=== PATIENT | female | born 1960 | race Caucasian/White ===

== ENCOUNTER 2020-11-08 12:52 | Inpatient (IN) | payer MEDICARE ==
[~2020-11-08] VITALS: Ht 160 cm; Wt 72.7 kg
[2020-11-08 13:49] LABS: BASOPHILS 0.6 % (0-2); EOSINOPHILS 4.2 % (0-7); HEMOGLOBIN 12.5 g/dL (12-16); IMMATURE GRANULOCYTES 0.4 % (0-5); LYMPHOCYTE ABS# 2.85 10x3/uL (1.18-3.74); LYMPHOCYTES 25.5 % (15-50); MCH 27.2 pg (26.0-34.0); MCHC 32.1 g/dL (31.0-37.0); MONOCYTES 6.7 % (2-11); NEUTROPHIL ABS# 6.99 10x3/uL (1.56-6.13); NEUTROPHILS 62.6 % (40-80); PLATELET COUNT 396 10x3/uL (130-400); RBC 4.59 10x6/uL (4.00-5.40); RDW 14.7 % (11.5-14.5); WBC 11.2 10x3/uL (4.8-10.8)
[2020-11-08 14:02] LABS: ALBUMIN 3.7 g/dL (3.4-5.0); BILIRUBIN - TOTAL 0.36 mg/dL (0.2-1.3); CALCIUM 8.8 mg/dL (8.5-10.1); CARBON DIOXIDE 29.2 mmol/L (21.0-32.0); CREATININE - SERUM 0.9 mg/dL (0.6-1.3); MAGNESIUM - SERUM 2.5 mg/dL (1.8-2.4); PHOSPHOROUS 4.2 mg/dL (2.5-4.9); POTASSIUM - SERUM 4.2 mmol/L (3.5-5.1); PROTEIN - SERUM 7.6 g/dL (6.4-8.2)
[2020-11-08] MEDS ORDERED: ZOVIRAX200 MG PO (14:55)
[2020-11-08] MEDS ORDERED: BENTYL 20 MG TA20 MG PO (14:56)
[2020-11-08] MEDS ORDERED: FLUCONAZOLE150 MG PO (14:56)
[2020-11-08] MEDS ORDERED: HYDROCHLOROTHIA25 MG PO (14:57)
[2020-11-08] MEDS ORDERED: SYNTHROID75 MCG PO (14:57)
[2020-11-08] MEDS ORDERED: BUPROPION XL300 MG PO (14:58)
[2020-11-08] MEDS ORDERED: PROVIGIL200 MG PO (14:58)
[2020-11-08] MEDS ORDERED: K-TAB10 MEQ PO (14:59)
[2020-11-08] MEDS ORDERED: PROTONIX40 MG PO (15:00)
[2020-11-08] MEDS ORDERED: PERCOCET 10-321 EAC1 PO (15:01)
[2020-11-08] MEDS ORDERED: MORPHINE SULFAT30 M4 PO (15:02)
[2020-11-08] MEDS ORDERED: ADVAIR 250-501 EAC1 INH (15:02)
[2020-11-08] MEDS ORDERED: ACETAMINOPHEN325 MG PO (15:03)
[2020-11-08] MEDS ORDERED: MIRALAX17 GM PO (15:04)
[2020-11-08] MEDS ORDERED: ADVIL200 MG PO (15:04)
[2020-11-08] MEDS ORDERED: FLUTICASONE PRO16 GM NASAL (15:05)
[2020-11-08] MEDS ORDERED: MONISTAT-7 VAG45 G1 VG (15:05)
[2020-11-08 18:13] VITALS: BP 152/76; Ht 160 cm; Wt 72.7 kg
--- NOTE | 2020-11-08 18:26 | NUR ---
ASSESSMENT PER FLOW SHEET. PATIENT IS WITHOUT DISTRESS.ISOLATION MAINTAINED. GUARD AT BEDSIDE. CALL LIGHT USEE INSRUCTED.
[2020-11-09 06:35] LABS: BASOPHILS 0.9 % (0-2); EOSINOPHILS 5.4 % (0-7); HEMATOCRIT 33.5 % (36.0-48.0); HEMOGLOBIN 10.8 g/dL (12-16); IMMATURE GRANULOCYTES 0.3 % (0-5); LYMPHOCYTE ABS# 2.69 10x3/uL (1.18-3.74); LYMPHOCYTES 34.3 % (15-50); MCH 27.3 pg (26.0-34.0); MCHC 32.2 g/dL (31.0-37.0); MCV 84.6 fL (80.0-100.0); MEAN PLATELET VOLUME 10.8 fL (7.4-10.4); MONOCYTES 6.6 % (2-11); NEUTROPHIL ABS# 4.13 10x3/uL (1.56-6.13); NEUTROPHILS 52.5 % (40-80); PLATELET COUNT 343 10x3/uL (130-400); RBC 3.96 10x6/uL (4.00-5.40); RDW 14.8 % (11.5-14.5)
[2020-11-09 06:46] LABS: WBC 7.9 10x3/uL (4.8-10.8)
[2020-11-09 07:07] LABS: ALBUMIN 2.9 g/dL (3.4-5.0); ALKALINE PHOSPHATASE 92 U/L (30-120); ALT (SGPT) 23 U/L (10-68); BILIRUBIN - TOTAL 0.18 mg/dL (0.2-1.3); CALC OSMOLALITY 286 mosm/kg (275-300); CALCIUM 7.9 mg/dL (8.5-10.1); CARBON DIOXIDE 28.2 mmol/L (21.0-32.0); CHLORIDE - SERUM 107 mmol/L (98-107); CREATININE - SERUM 0.7 mg/dL (0.6-1.3); GLUCOSE 87 mg/dL (74-106); POTASSIUM - SERUM 3.9 mmol/L (3.5-5.1); PROTEIN - SERUM 6.1 g/dL (6.4-8.2); SODIUM 143 mmol/L (136-145); UREA NITROGEN 20 mg/dL (7-18); eGFR NON AFRICAN AMERICAN 90 mL/min (90-120)
[2020-11-09 08:17] VITALS: BP 146/73
--- NOTE | 2020-11-09 10:25 | NUR ---
CALL FROM JANET IN IR. PATIENT DOES NOT MET GUIDE LINES FOR PICC LINE. I HAVE SPOKEN WITH DR THAKKAR. DR THAKKAR WANTS MMID LINE PLACED FOR [facility]HOME ABX THERAPY. I HAVE SPOKEN WITH IRINA SHAHFORENSIC ARTIST WHOM REFERRED ME TO CASE MANAGEMENT TO ASSIST.
--- NOTE | 2020-11-09 10:27 | NUR ---
URINE IN AND OUT CATH TO LAB
--- NOTE | 2020-11-09 10:44 | MORECARE ---
CASE MANAGEMENT DISCHARGE SUMMARY PATIENT: ARIANNE SILVERIO UNIT: [id number] ADM DATE: 11/08/20 AGE: 60 : 58 SEX: F ROOM/BED: D.2205 AUTHOR: KARI,DOC PHYSICIAN: REFERRING PHYSICIAN: DIANE JACKSON MD DATE OF SERVICE: 11/09/20 Case Management Discharge Planning Summary COMMENTS ENTERED DATE: 11/09/20 10:40 CT COMMENT TYPE: Discharge Planning REVIEWER: Manisha Orlando PER DR THAKKAR HE WOULD LIKE THE PATIENT TO DC HOME WITH 7 DAYS OF IV ABX I HAVE SENT THE ORDER TO [employer] TO SEE GET A FREGOSO. I WILL NEED A LINE FOR THE PATIENT. CM ATTEMPTING TO MAKE THIS HAPPEN DCP REVIEW SUMMARY ANTICIPATED D/C DATE: EXPECTED LOS : CASE STATUS: DCP Initiated INITIAL REVIEW: 11/08/2020 INITIAL REVIEWER: Manisha Orlando FINAL DISCHARGE DISPOSITION: : FINAL REVIEWER: FINAL REVIEW DATE: DCP Focus Questions & Answers QUESTION: ANSWER : PATIENT: ARIANNE SILVERIO ENCOUNTER: [id number] MEDICAL RECORD#: [id number] ADMISSION DATE: 11/08/2020 DISCHARGE DATE: ATTENDING MD: DIANE SOMMERS : AGE: 60 MARITAL STATUS: M DC PLAN ID: [id number] FACILITY: [facility] PRINTED ON: 11/09/20 10:44 CT All edits/amendments must be made on the electronic document DICTATION DATE: 11/09/20 104 INBOUND SALES REPRESENTATIVE: DM 11/09/20 1044 RPT#: [id number] DC DATE: STATUS: ADM IN [facility] [address] [place] [address] END OF REPORT
[2020-11-09 11:16] LABS: BILIRUBIN NEGATIVE (NEGATIVE); KETONE NEGATIVE (NEGATIVE); NITRITE NEGATIVE (NEGATIVE); UROBILINOGEN NORMAL mg/dL (< 2)
[2020-11-09 12:48] VITALS: BP 150/71
--- NOTE | 2020-11-09 16:30 | MORECARE ---
CASE MANAGEMENT DISCHARGE SUMMARY PATIENT: ARIANNE SILVERIO UNIT: [id number] ADM DATE: 11/08/20 AGE: 60 : 58 SEX: F ROOM/BED: D.2205 AUTHOR: KARI,DOC PHYSICIAN: REFERRING PHYSICIAN: DIANE JACKSON MD DATE OF SERVICE: 11/09/20 Case Management Discharge Planning Summary COMMENTS ENTERED DATE: 11/09/20 16:22 CT COMMENT TYPE: Discharge Planning REVIEWER: Manisha Orlando CM HAS SENT A REFERRAL TO [facility] FOR PRICES [place] ANABELLA FLOW $ 337.37 MED BALLS 554.37 [facility] MINI BAGS $216.04 AND 15.00 PER DAY FOR SUPPLIES I HAVE CALLED [facility] , AND THEY ARE NOT ABLE TO ACCEPT THE PATIENT RIGHT NOW DUE TO STAFFING CARE [facility] DOES NOT TAKE [facility] IS OUT OF NETWORK SUPERIOR SENIOR LIVING- CAN NOT TAKE I CALLED [facility] ( SPOKE WITH KHAI) THEY DO TAKE SOME UH AND WILL HAVE TO RUN HER INSURANCE TO SEE IF SHE IS IN NETWORK WITH THEM. I HAVE FAXED THE CLINICALS TO HER SHE WILL NEED A MIDLINE & I HAVE MADE THE HOUSE SUP, IRINA AWARE OF THIS. I WILL WAIT TO HEAR BACK FROM [place] TO MAKE SURE SHE IS COVERED. CM WILL CONTINUE TO FOLLOW AND ASSIST ENTERED DATE: 11/09/20 10:40 CT COMMENT TYPE: Discharge Planning REVIEWER: Manisha Orlando PER DR THAKKAR HE WOULD LIKE THE PATIENT TO DC HOME WITH 7 DAYS OF IV ABX I HAVE SENT THE ORDER TO [employer] TO SEE GET A FREGOSO. I WILL NEED A LINE FOR THE PATIENT. CM ATTEMPTING TO MAKE THIS HAPPEN DCP REVIEW SUMMARY ANTICIPATED D/C DATE: EXPECTED LOS : CASE STATUS: DCP Initiated INITIAL REVIEW: 11/08/2020 INITIAL REVIEWER: Manisha Orlando FINAL DISCHARGE DISPOSITION: : FINAL REVIEWER: FINAL REVIEW DATE: DCP Focus Questions & Answers QUESTION: ANSWER : PATIENT: ARIANNE SILVERIO ENCOUNTER: [id number] MEDICAL RECORD#: [id number] ADMISSION DATE: 11/08/2020 DISCHARGE DATE: ATTENDING MD: DIANE SOMMERS : AGE: 60 MARITAL STATUS: M DC PLAN ID: [id number] FACILITY: [facility] PRINTED ON: 11/09/20 16:30 CT All edits/amendments must be made on the electronic document DICTATION DATE: 11/09/201629 BEHAVIORAL SCHOOL COUNSELORS: OMAYRA 11/09/201629 RPT#: [id number] DC DATE: STATUS: ADM IN [facility] [address] [place] [address] END OF REPORT
[2020-11-09 17:22] VITALS: BP 157/79
[2020-11-09 20:00] VITALS: BP 129/71
[2020-11-10] VITALS: BP 142/68
[2020-11-10 04:00] VITALS: BP 149/60
--- NOTE | 2020-11-10 06:00 | NUR ---
ASSUMED CARE OF PT AFTER REPORT/ROUNDS LAST EVENING. PT REMAINS A&OX4 AND VERBALIZING WANTS/NEEDS CLEARLY, WITHOUT DIFFICULTY OR HESITATION. DID C/O INCREASED BACK PAIN AND PRN GIVEN FOR SAME WITH EFFECTIVE RELIEF. PT HAS SLEPT WELL. CHECKED IV SITE THIS AM AND SAME HAD SLIGHT PUFFINESS AROUND. IV RESITED TO RFA WITH 22G AND SUCCESSFUL FIRST STICK. PT IN BED WATCHING TV AT THIS TIME.
[2020-11-10 06:38] LABS: BASOPHILS 0.3 % (0-2); EOSINOPHILS 4.9 % (0-7); HEMATOCRIT 33.9 % (36.0-48.0); HEMOGLOBIN 10.5 g/dL (12-16); IMMATURE GRANULOCYTES 0.2 % (0-5); LYMPHOCYTES 22.9 % (15-50); MCH 26.5 pg (26.0-34.0); MCV 85.6 fL (80.0-100.0); MEAN PLATELET VOLUME 11.3 fL (7.4-10.4); NEUTROPHIL ABS# 5.93 10x3/uL (1.56-6.13); NEUTROPHILS 64.7 % (40-80); PLATELET COUNT 308 10x3/uL (130-400); RBC 3.96 10x6/uL (4.00-5.40); RDW 15.2 % (11.5-14.5); WBC 9.2 10x3/uL (4.8-10.8)
[2020-11-10 07:17] LABS: CALC OSMOLALITY 280 mosm/kg (275-300); CHLORIDE - SERUM 103 mmol/L (98-107); CREATININE - SERUM 0.7 mg/dL (0.6-1.3); GLUCOSE 121 mg/dL (74-106); POTASSIUM - SERUM 3.7 mmol/L (3.5-5.1); SODIUM 139 mmol/L (136-145); UREA NITROGEN 17 mg/dL (7-18); eGFR NON AFRICAN AMERICAN 90 mL/min (90-120)
--- NOTE | 2020-11-10 10:22 | MORECARE ---
CASE MANAGEMENT DISCHARGE SUMMARY PATIENT: ARIANNE SILVERIO UNIT: [id number] ADM DATE: 11/08/20 AGE: 60 : 58 SEX: F ROOM/BED: D.2205 AUTHOR: KARI,DOC PHYSICIAN: REFERRING PHYSICIAN: DIANE JACKSON MD DATE OF SERVICE: 11/10/20 Case Management Discharge Planning Summary COMMENTS ENTERED DATE: 11/10/20 7:48 CT COMMENT TYPE: Discharge Planning REVIEWER: Manisha Orlando Late Entry 11/09/20 @ 1730 I spoke with the patient and her at length about their options with IV ABX They would like to go with the [facility] with [facility] and not do home health if they can manage it. I explained to them that she will need a Midline and that [facility] will come and deliver the abx to them this afternoon & do the teaching. CM to follow and assist. I will wait to find out when her midline will be placed. I spoke with bony Rivera to let her know of needs ENTERED DATE: 11/09/20 16:22 CT COMMENT TYPE: Discharge Planning REVIEWER: Manisha Orlando CM HAS SENT A REFERRAL TO [facility] FOR PRICES [place] ANABELLA FLOW $ 337.37 MED BALLS 554.37 [facility] MINI BAGS $216.04 AND 15.00 PER DAY FOR SUPPLIES I HAVE CALLED [facility], AND THEY ARE NOT ABLE TO ACCEPT THE PATIENT RIGHT NOW DUE TO STAFFING CARE [facility] DOES NOT TAKE [facility] IS OUT OF NETWORK SUPERIOR USP- CAN NOT TAKE I CALLED [facility] ( SPOKE WITH KHAI) THEY DO TAKE SOME [facility] AND WILL HAVE TO RUN HER INSURANCE TO SEE IF SHE IS IN NETWORK WITH THEM. I HAVE FAXED THE CLINICALS TO HER SHE WILL NEED A MIDLINE & I HAVE MADE THE IRINA CHANEY AWARE OF THIS. I WILL WAIT TO HEAR BACK FROM [facility] TO MAKE SURE SHE IS COVERED. CM WILL CONTINUE TO FOLLOW AND ASSIST ENTERED DATE: 11/09/20 10:40 CT COMMENT TYPE: Discharge Planning REVIEWER: Manisha Orlando PER DR THAKKAR HE WOULD LIKE THE PATIENT TO DC HOME WITH 7 DAYS OF IV ABX I HAVE SENT THE ORDER TO [facility] TO SEE GET A FREGOSO. I WILL NEED A LINE FOR THE PATIENT. CM ATTEMPTING TO MAKE THIS HAPPEN DCP REVIEW SUMMARY ANTICIPATED D/C DATE: EXPECTED LOS : CASE STATUS: DCP Initiated INITIAL REVIEW: 11/08/2020 INITIAL REVIEWER: Manisha Orlando FINAL DISCHARGE DISPOSITION: : FINAL REVIEWER: FINAL REVIEW DATE: DCP Focus Questions & Answers QUESTION: ANSWER : PATIENT: ARIANNE SILVERIO ENCOUNTER: [id number] MEDICAL RECORD#: [id number] ADMISSION DATE: 11/08/2020 DISCHARGE DATE: ATTENDING MD: DIANE SOMMERS : AGE: 60 MARITAL STATUS: M DC PLAN ID: [id number] FACILITY: [facility] PRINTED ON: 11/10/20 7:55 CT All edits/amendments must be made on the electronic document DICTATION DATE: 11/10/20754 VISCOSITY INSPECTOR: OMAYRA 11/10/20754 RPT#: [id number] DC DATE: STATUS: ADM IN [facility] [address] [place] [address] END OF REPORT
--- NOTE | 2020-11-10 11:33 | MORECARE ---
CASE MANAGEMENT DISCHARGE SUMMARY PATIENT: ARIANNE SILVERIO UNIT: [id number] ADM DATE: 11/08/20 AGE: 60 : 58 SEX: F ROOM/BED: D.2205 AUTHOR: KARI,DOC PHYSICIAN: REFERRING PHYSICIAN: DIANE JACKSON MD DATE OF SERVICE: 11/10/20 Case Management Discharge Planning Summary COMMENTS ENTERED DATE: 11/10/20 11:26 CT COMMENT TYPE: Discharge Planning REVIEWER: Manisha Orlando I spoke with Randall the patient's spouse and he will be here at 3:30 for teaching ENTERED DATE: 11/10/20 7:48 CT COMMENT TYPE: Discharge Planning REVIEWER: Manisha Orlando Late Entry 11/09/20 @ 1730 I spoke with the patient and her at length about their options with IV ABX They would like to go with the [facility] with [facility] and not do home health if they can manage it. I explained to them that she will need a Midline and that [facility] will come and deliver the abx to them this afternoon & do the teaching. CM to follow and assist. I will wait to find out when her midline will be placed. I spoke with bony Rivera to let her know of needs ENTERED DATE: 11/09/20 16:22 CT COMMENT TYPE: Discharge Planning REVIEWER: Manisha Orlando HAS SENT A REFERRAL TO [facility] FOR PRICES [place] ANABELLA FLOW $ 337.37 MED BALLS 554.37 [facility] MINI BAGS $216.04 AND 15.00 PER DAY FOR SUPPLIES I HAVE CALLED [facility], AND THEY ARE NOT ABLE TO ACCEPT THE PATIENT RIGHT NOW DUE TO STAFFING CARE [facility] SU[facility] ASS[facility]ED- CAN NOT TAKE I CALLED [facility] ( SPOKE WITH KHAI) THEY DO TAKE SOME [facility] AND WILL HAVE TO RUN HER INSURANCE TO SEE IF SHE IS IN NETWORK WITH THEM. I HAVE FAXED THE CLINICALS TO HER SHE WILL NEED A MIDLINE & I HAVE MADE THE HOUSE SUP, IRINA AWARE OF THIS. I WILL WAIT TO HEAR BACK FROM [place] TO MAKE SURE SHE IS COVERED. CM WILL CONTINUE TO FOLLOW AND ASSIST ENTERED DATE: 11/09/20 10:40 CT COMMENT TYPE: Discharge Planning REVIEWER: Manisha Orlando PER DR THAKKAR HE WOULD LIKE THE PATIENT TO DC HOME WITH 7 DAYS OF IV ABX I HAVE SENT THE ORDER TO [facility] TO SEE GET A FREGOSO. I WILL NEED A LINE FOR THE PATIENT. CM ATTEMPTING TO MAKE THIS HAPPEN DCP REVIEW SUMMARY ANTICIPATED D/C DATE: EXPECTED LOS : CASE STATUS: DCP Initiated INITIAL REVIEW: 11/08/2020 INITIAL REVIEWER: Manisha Orlando FINAL DISCHARGE DISPOSITION: : FINAL REVIEWER: FINAL REVIEW DATE: DCP Focus Questions & Answers QUESTION: ANSWER : PATIENT: ARIANNE SILVERIO ENCOUNTER: [id number] MEDICAL RECORD#: [id number] ADMISSION DATE: 11/08/2020 DISCHARGE DATE: ATTENDING MD: DIANE SOMMERS : AGE: 60 MARITAL STATUS: M DC PLAN ID: [id number] FACILITY: [facility] PRINTED ON: 11/10/20 11:33 CT All edits/amendments must be made on the electronic document DICTATION DATE: 11/10/20 113 DREDGE ENGINEER: OMAYRA 11/10/20 113 RPT#: [id number] DC DATE: STATUS: ADM IN [facility] [address] [place] [address] END OF REPORT
--- NOTE | 2020-11-10 13:45 | NUR ---
PATIENT IN BED GETTING MIDLINE AT THIS TIME BY [facility].
--- NOTE | 2020-11-10 13:49 | MORECARE ---
CASE MANAGEMENT DISCHARGE SUMMARY PATIENT: ARIANNE SILVERIO UNIT: [id number] ADM DATE: 11/08/20 AGE: 60 : 58 SEX: F ROOM/BED: D.2205 AUTHOR: KARI,DOC PHYSICIAN: REFERRING PHYSICIAN: DIANE JACSKON MD DATE OF SERVICE: 11/10/20 Case Management Discharge Planning Summary COMMENTS ENTERED DATE: 11/10/20 11:26 CT COMMENT TYPE: Discharge Planning REVIEWER: Manisha Orlando I spoke with Randall the patient's spouse and he will be here at 3:30 for teaching ENTERED DATE: 11/10/20 7:48 CT COMMENT TYPE: Discharge Planning REVIEWER: Manisha Orlando Late Entry 11/09/20 @ 1730 I spoke with the patient and her at length about their options with IV ABX They would like to go with the [facility] with [facility] and not do home health if they can manage it. I explained to them that she will need a Midline and that [facility] will come and deliver the abx to them this afternoon & do the teaching. CM to follow and assist. I will wait to find out when her midline will be placed. I spoke with bony Rivera to let her know of needs ENTERED DATE: 11/09/20 16:22 CT COMMENT TYPE: Discharge Planning REVIEWER: Manisha Orlando HAS SENT A REFERRAL TO [facility] FOR PRICES [place] ANABELLA FLOW $ 337.37 MED BALLS 554.37 [employer] MINI BAGS $216.04 AND 15.00 PER DAY FOR SUPPLIES I HAVE CALLED [facility], AND THEY ARE NOT ABLE TO ACCEPT THE PATIENT RIGHT NOW DUE TO STAFFING CARE [facility]- CAN NOT TAKE I CALLED [facility] ( SPOKE WITH KHAI) THEY DO TAKE SOME [facility] AND WILL HAVE TO RUN HER INSURANCE TO SEE IF SHE IS IN NETWORK WITH THEM. I HAVE FAXED THE CLINICALS TO HER SHE WILL NEED A MIDLINE & I HAVE MADE THE HOUSE SUP, IRINA AWARE OF THIS. I WILL WAIT TO HEAR BACK FROM [facility] TO MAKE SURE SHE IS COVERED. CM WILL CONTINUE TO FOLLOW AND ASSIST ENTERED DATE: 11/09/20 10:40 CT COMMENT TYPE: Discharge Planning REVIEWER: Manisha Orlando PER DR THAKKAR HE WOULD LIKE THE PATIENT TO DC HOME WITH 7 DAYS OF IV ABX I HAVE SENT THE ORDER TO [facility] TO SEE GET A FREGOSO. I WILL NEED A LINE FOR THE PATIENT. CM ATTEMPTING TO MAKE THIS HAPPEN DCP REVIEW SUMMARY ANTICIPATED D/C DATE: EXPECTED LOS : CASE STATUS: DCP Initiated INITIAL REVIEW: 11/08/2020 INITIAL REVIEWER: Manisha Orlando FINAL DISCHARGE DISPOSITION: : FINAL REVIEWER: FINAL REVIEW DATE: DCP Focus Questions & Answers QUESTION: ANSWER : PATIENT: ARIANNE SILVERIO ENCOUNTER: [id number] MEDICAL RECORD#: [id number] ADMISSION DATE: 11/08/2020 DISCHARGE DATE: ATTENDING MD: DIANE SOMMERS : AGE: 60 MARITAL STATUS: M DC PLAN ID: [id number] FACILITY: [facility] PRINTED ON: 11/10/20 13:48 CT All edits/amendments must be made on the electronic document DICTATION DATE: 11/10/201347 BUSINESS SERVICES OFFICER: OMAYRA 11/10/201347 RPT#: [id number] DC DATE: STATUS: ADM IN [facility] [address] [place] [address] END OF REPORT
[2020-11-10] MEDS ORDERED: Merrem 1 GM/NS 100 M IVPB (13:59)
--- NOTE | 2020-11-10 14:13 | NUR ---
RECEIVED ORDER FOR MIDLINE PLACEMENT. PATIENT HAS PICC ORDER IN, HOWEVER ANTIBIOTIC FOR 7 DAYS, AND PHYSICIAN STATES OK FOR MIDLINE PLACEMENT. ON ARRIVAL, MIDLINE DISCSSED W PATIENT AND VERBAL CONSENT OBTAINED. USING [facility] ULTRASOUND, RIGHT UPPER ARM CEPHALIC VEIN IDENTIFIED. TIMEOUT WITH PATINET, NAME, DATE OF AND ALLERGIES VERIFIED. PREP,DRAPE AND 1% XYLOCAINE TO AREA. VEIN ACCESSED, UNABLE TO INSERT LINE PAST 5 CM. LINE REMOVED AND WILL ATTEMPT LEFT UPPER ARM PLACEMENT. USING [employer] ULTRASOUND, LEFT UPPER ARM BASILIC VEIN IDENTIFIED. TIMEOUT WITH PATIENT, NAME DATE OF AND ALLERGIES VERIFIED. PREP, DRAPE AND 1% XYLOCAINE TO AREA. VEIN ACESSED AND SINGLE LUMEN MIDLINE INSERTED TO 13 CM. SITE DRESSED WITH SECUREMENT DEVICE, BIOPATCH AND TEGADERM DRESSING. CARE REVIEWED W PT AND CARE INSTRUCTIONS PROVIDED TO PATIENT. PT TOLERATED WELL WITH LESS THAN 5 ML BLOOD LOSS. XYLOCAINE TO AREA. VEIN ACCESSED AND SINGLE LUMEN MIDLINE
--- NOTE | 2020-11-10 14:15 | NUR ---
PATIENT PERIPHREAL IV REMOVED WITH CATH TIP INTACT.
--- NOTE | 2020-11-10 15:30 | NUR ---
[facility] EDUCATED PATIENT ABOUT ANTIBIOTICS AT THIS TIME.
--- NOTE | 2020-11-10 16:26 | NUR ---
PATIENT RECIEVED DC INSTRUCTIONS. VERBALIZED UNDERSTANDING. AMBULATED AT THIS TIME DOWN TO PRIVATE VEHICLE WITH PERSONAL BELONGINGS ESCORTED BY . REFUSED WC AT THIS TIME. PATIENT MIDLINE CDI.
--- NOTE | 2020-11-10 16:54 | MORECARE ---
CASE MANAGEMENT DISCHARGE SUMMARY PATIENT: ARIANNE SILVERIO UNIT: [id number] ADM DATE: 11/08/20 AGE: 60 : 58 SEX: F ROOM/BED: D.2205 AUTHOR: KARI,DOC PHYSICIAN: REFERRING PHYSICIAN: DIANE JACKSON MD DATE OF SERVICE: 11/10/20 Case Management Discharge Planning Summary COMMENTS ENTERED DATE: 11/10/20 16:37 CT COMMENT TYPE: Discharge Planning REVIEWER: Manisha Orlando Patient will be discharged home today with [facility]. Felix with [facility] has been here and taught the patient and her He thought that the spouse could handle the IV ABX and did not need home health. The patient will either go to [facility] office in [place] or will go to her PCP, Dr Jackson and have the Midline removed. ENTERED DATE: 11/10/20 11:26 CT COMMENT TYPE: Discharge Planning REVIEWER: Manisha Orlando I spoke with Randall the patient's spouse and he will be here at 3:30 for teaching ENTERED DATE: 11/10/20 7:48 CT COMMENT TYPE: Discharge Planning REVIEWER: Manisha Orlando Late Entry 11/09/20 @ 1730 I spoke with the patient and her at length about their options with IV ABX They would like to go with the [facility] with [facility] and not do home health if they can manage it. I explained to them that she will need a Midline and that [facility] will come and deliver the abx to them this afternoon & do the teaching. CM to follow and assist. I will wait to find out when her midline will be placed. I spoke with bony Rivera to let her know of needs ENTERED DATE: 11/09/20 16:22 CT COMMENT TYPE: Discharge Planning REVIEWER: Manisha Orlando CM HAS SENT A REFERRAL TO [facility] [facility] FOR PRICES [place] ANABELLA FLOW $ 337.37 MED BALLS 554.37 [facility] MINI BAGS $216.04 AND 15.00 PER DAY FOR SUPPLIES I HAVE CALLED [facility] , AND THEY ARE NOT ABLE TO ACCEPT THE PATIENT RIGHT NOW DUE TO STAFFING CARE [facility] DOES NOT TAKE [facility] IS OUT OF NETWORK SUPERIOR ASSISTED- CAN NOT TAKE I CALLED [facility] ( SPOKE WITH KHAI) THEY DO TAKE SOME [facility] AND WILL HAVE TO RUN HER INSURANCE TO SEE IF SHE IS IN NETWORK WITH THEM. I HAVE FAXED THE CLINICALS TO HER SHE WILL NEED A MIDLINE & I HAVE MADE THE HOUSE SUP, IRINA AWARE OF THIS. I WILL WAIT TO HEAR BACK FROM [place] TO MAKE SURE SHE IS COVERED. CM WILL CONTINUE TO FOLLOW AND ASSIST ENTERED DATE: 11/09/20 10:40 CT COMMENT TYPE: Discharge Planning REVIEWER: Manisha Orlando PER DR THAKKAR HE WOULD LIKE THE PATIENT TO DC HOME WITH 7 DAYS OF IV ABX I HAVE SENT THE ORDER TO [facility] TO SEE GET A FREGOSO. I WILL NEED A LINE FOR THE PATIENT. CM ATTEMPTING TO MAKE THIS HAPPEN DCP REVIEW SUMMARY ANTICIPATED D/C DATE: EXPECTED LOS : CASE STATUS: DCP Initiated INITIAL REVIEW: 11/08/2020 INITIAL REVIEWER: Manisha Orlando FINAL DISCHARGE DISPOSITION: : FINAL REVIEWER: FINAL REVIEW DATE: DCP [facility] Questions & Answers QUESTION: ANSWER : PATIENT: ARIANNE SILVERIO ENCOUNTER: [id number] MEDICAL RECORD#: [id number] ADMISSION DATE: 11/08/2020 DISCHARGE DATE: 11/10/2020 ATTENDING MD: DIANE SOMMERS : AGE: 60 MARITAL STATUS: M DC PLAN ID: [id number] FACILITY: [facility] PRINTED ON: 11/10/20 16:54 CT All edits/amendments must be made on the electronic document DICTATION DATE: 11/10/201653 JOURNEYMAN POWER PLANT OPERATOR: OMAYRA 11/10/201653 RPT#: [id number] DC DATE:11/10/20 STATUS: DIS IN [facility] [address] [facility] [place] [address] END OF REPORT
[2020-11-11] MEDS ORDERED: PHENERGAN50 MG RC (23:56)
== END 2020-11-10 16:29 | disposition home or self-care (01) | DRG 690 ==
LOC: D.MS 12:52
PROVIDERS: Family Medicine; ADMIT Emergency Medicine; ATTEND Emergency Medicine
DX: N39.0 Urinary tract infection, site not specified (principal); Z16.30 Resistance to unspecified antimicrobial drugs; B96.20 Unspecified Escherichia coli [E. coli] as the cause of diseases classified elsewhere; I10 Essential (primary) hypertension; E03.9 Hypothyroidism, unspecified; F32.9 Major depressive disorder, single episode, unspecified; F11.90 Opioid use, unspecified, uncomplicated

== ENCOUNTER 2020-11-11 20:42 | Emergency (ER) | payer MEDICARE ==
[~2020-11-11] VITALS: Ht 160 cm; Wt 75.0 kg
[~2020-11-11 20:42] MED LIST: ACETAMINOPHEN325 MG PO; ADVAIR 250-501 EAC1 INH; ADVIL200 MG PO; BENTYL 20 MG TA20 MG PO; BUPROPION XL300 MG PO; FLUCONAZOLE150 MG PO; FLUTICASONE PRO16 GM NASAL; HYDROCHLOROTHIA25 MG PO; K-TAB10 MEQ PO; MIRALAX17 GM PO; MONISTAT-7 VAG45 G1 VG; MORPHINE SULFAT30 M4 PO; Merrem 1 GM/NS 100 M IVPB; PERCOCET 10-321 EAC1 PO; PROTONIX40 MG PO; PROVIGIL200 MG PO; SYNTHROID75 MCG PO; ZOVIRAX200 MG PO
[2020-11-11 20:45] VITALS: BP 148/65; Ht 160 cm; Wt 75.0 kg
[2020-11-11 22:25] LABS: BASOPHILS 0.3 % (0-2); HEMATOCRIT 35.9 % (36.0-48.0); HEMOGLOBIN 11.9 g/dL (12-16); IMMATURE GRANULOCYTES 0.2 % (0-5); LYMPHOCYTE ABS# 1.21 10x3/uL (1.18-3.74); LYMPHOCYTES 12.9 % (15-50); MCH 27.5 pg (26.0-34.0); MCHC 33.1 g/dL (31.0-37.0); MEAN PLATELET VOLUME 9.8 fL (7.4-10.4); MONOCYTES 7.6 % (2-11); NEUTROPHIL ABS# 7.29 10x3/uL (1.56-6.13); PLATELET COUNT 336 10x3/uL (130-400); RBC 4.32 10x6/uL (4.00-5.40); RDW 14.3 % (11.5-14.5); WBC 9.4 10x3/uL (4.8-10.8)
[2020-11-11 22:30] LABS: MCV 83.1 fL (80.0-100.0)
[2020-11-11 22:37] LABS: CALC OSMOLALITY 281 mosm/kg (275-300); CARBON DIOXIDE 25.8 mmol/L (21.0-32.0); CHLORIDE - SERUM 105 mmol/L (98-107); CREATININE - SERUM 0.8 mg/dL (0.6-1.3); GLUCOSE 103 mg/dL (74-106); POTASSIUM - SERUM 3.6 mmol/L (3.5-5.1); SODIUM 141 mmol/L (136-145); UREA NITROGEN 14 mg/dL (7-18); eGFR NON AFRICAN AMERICAN 77 mL/min (90-120)
[2020-11-11 22:47] LABS: ALBUMIN 3.3 g/dL (3.4-5.0); ALKALINE PHOSPHATASE 109 U/L (30-120); ALT (SGPT) 27 U/L (10-68); AMYLASE - SERUM 18 U/L (25-115); BILIRUBIN - TOTAL 0.41 mg/dL (0.2-1.3); PROTEIN - SERUM 7.2 g/dL (6.4-8.2)
[2020-11-11 22:56] LABS: LIPASE 21 U/L (73-393); TROPONIN-I < 0.017 ng/mL (0.000-0.060)
[2020-11-11 23:07] LABS: BILIRUBIN NEGATIVE (NEGATIVE); KETONE NEGATIVE (NEGATIVE); NITRITE NEGATIVE (NEGATIVE); UROBILINOGEN NORMAL mg/dL (< 2)
[2020-11-11] MEDS ORDERED: PHENERGAN50 MG RC (23:56)
== END 2020-11-12 00:24 | disposition home or self-care (01) ==
LOC: D.ER 20:42
PROVIDERS: Family Medicine
DX: R11.2 Nausea with vomiting, unspecified (principal); K21.9 Gastro-esophageal reflux disease without esophagitis